=== PATIENT | male | born 1950 | race Caucasian/White ===

== ENCOUNTER 2020-09-19 11:43 | Day surgery (SDC) | payer MEDICARE ==
[~2020-09-19] VITALS: Ht 175.3 cm; Wt 85.5 kg
[~2020-09-19 11:43] MED LIST: ACYC400 PO; ASCO500 PO; CYAN100 PO; ERGO400 PO; FENASTERIDE; FISH1000 PO; HYDACE5 PO; HYDHCL10 PO; HYDPAM25 PO; L LYSINE; L-LYSINE1000 MG PO; LOSA25 PO; MONT10T PO; Norco 10-325 T1 EACH PO; OMEP20ER PO; OXYC5 PO; PROBIOTIC1 EAC1 PO; SIMV10 PO; TAMS.4ER PO
== END 2020-09-19 14:14 | disposition home or self-care (01) ==
LOC: ORSCSDS 11:43
PROVIDERS: Surgery
PROC: 0DBK8ZX Excision of Ascending Colon, Via Natural or Artificial Opening Endoscopic, Diagnostic (ICD-10-PCS; principal; 2020-09-19 13:00)
PROC: 0DJ08ZZ Inspection of Upper Intestinal Tract, Via Natural or Artificial Opening Endoscopic (ICD-10-PCS; principal; 2020-09-19 13:00)
DX: Z12.11 Encounter for screening for malignant neoplasm of colon (principal); Z86.010 Personal history of colon polyps; K21.9 Gastro-esophageal reflux disease without esophagitis; D12.4 Benign neoplasm of descending colon; I10 Essential (primary) hypertension; Z79.899 Other long term (current) drug therapy
CPT/HCPCS: 88305; J2704; J7120

== ENCOUNTER 2024-04-25 07:58 | Day surgery (SDC) | payer MEDICARE ==
[~2024-04-25] VITALS: Ht 170.2 cm; Wt 85.5 kg
[2024-04-25] VITALS (14 sets, daily range): BP systolic 105–146; BP diastolic 75–109
[~2024-04-25 07:58] MED LIST changes: +OMEGA XL PO; +VITAMIN D350 MC3 PO
[2024-04-25] MEDS ORDERED: Acetaminophen 500 MG Tab PO SCH ×2 (08:25→16:00)
[2024-04-25] MEDS ORDERED: Lactated Ringer's 1,000 ML IV SCH ×2 (08:25→10:45)
[2024-04-25] MEDS ORDERED: Ropivacaine 0.5% HCl/Pf 123.125 MG,EPINEPHrine HCL 0.25 MG,Ketorolac Tromethamine 15 MG... INFIL SCH (08:25)
[2024-04-25] MEDS ORDERED: Chlorhexidine Mouth Care 15 ML UDC MT SCH (08:25)
[2024-04-25] MEDS ORDERED: OxyCODONE HCL 10 MG TABCR PO SCH (08:25)
[2024-04-25] MEDS ORDERED: CeFAZolin Sodium 2,000 MG in NS 100 ML IV SCH ×2 (08:25→19:00)
[2024-04-25] MEDS ORDERED: Tranexamic Acid 100 ML IV SCH (08:31)
--- NOTE | 2024-04-25 09:36 | NUR ---
PATIENT ACCOMPANIED TO DAY SURGERY WITH "FRIEND", HOANG. PATIENT GAVE GLASSES TO HOANG FOR SAFE KEEPING.
[2024-04-25] MEDS ORDERED: propofoL 60 ML IV ONE (09:48)
[2024-04-25] MEDS ORDERED: FentaNYL Citrate 50 MCG/ML 2 ML Injection ONE (09:48)
[2024-04-25] MEDS ORDERED: Promethazine HCl 25 MG Tab PO PRN (10:40)
[2024-04-25] MEDS ORDERED: Acyclovir 400 MG Tab PO PRN (10:40)
[2024-04-25] MEDS ORDERED: Metoclopramide HCl 5MG / ML 2ML Vial IV PRN (10:45)
[2024-04-25] MEDS ORDERED: Magnesium Hydroxide Conc 10 ML UDC PO PRN (10:45)
[2024-04-25] MEDS ORDERED: OxyCODONE HCL 5 MG TAB PO PRN ×2 (10:45)
[2024-04-25] MEDS ORDERED: FLU VACC TS2024-25(6MOS UP)/PF 45 MCG/0.5 ML SYRINGE IM SCH (10:45)
[2024-04-25] MEDS ORDERED: Ondansetron HCl 2 MG / ML 2ML Vial IV PRN (10:45)
[2024-04-25] MEDS ORDERED: HYDROmorphone HCl/Pf 1MG SYR IV PRN (10:50)
[2024-04-25] MEDS ORDERED: DiphenhydrAMINE HCL 25 MG Cap PO PRN (10:50)
[2024-04-25] MEDS ORDERED: Bisacodyl 10 MG Supp PR PRN (10:50)
[2024-04-25] MEDS ORDERED: Phenylephrine HCl 100 MCG/ML-NS 10MLSYR (1MG/10ML) ONE (11:16)
[2024-04-25] MEDS ORDERED: ePHEDrine Sulfate 50 MG/ML 1ML Injection ONE (11:18)
[2024-04-25] MEDS ORDERED: Ketorolac Tromethamine 15mg Vial IV SCH (12:00)
[2024-04-25] MEDS ORDERED: Esmolol HCL 10 MG/ML 10ML VIAL ONE (12:44)
--- NOTE | 2024-04-25 14:46 | NUR ---
ARRIVAL TO UNIT PATIENT TRANSFERRED TO UNIT FROM PACU VIA BED AT APPROX 1350. PATIENT ALERT AND ORIENTED X4. S/P R TKA WITH SPINAL - UNABLE TO WIGGLE TOES BUT DOES REPORT SOME SENSATION, DESCRIBED "PRESSURE." REPORTING 2/10 PAIN - MEDICATED PER EMAR. VSS. ON ROOM AIR, SATs >90%. RR EVEN, UNLABORED. TOLERATING SOME PO INTAKE - LR INFUSING PER EMAR. KPAD IN PLACE. CALL LIGHT IN REACH. VISITOR AT BEDSIDE.
[2024-04-25] MEDS ORDERED: Montelukast Sodium 10 MG Tab PO SCH (18:00)
[2024-04-25] MEDS ORDERED: Losartan Potassium 25 MG Tab PO SCH (18:00)
--- NOTE | 2024-04-25 18:12 | NUR ---
SHIFT SUMMARY NO ACUTE CHANGES SINCE ARRIVAL TO UNIT. VSS. S/P R TKA - REPORTING INCREASED SENSATION TO BLE FROM SPINAL. IS ABLE TO WIGGLE TOES BUT DOES REPORT NUMBNESS, TINGLING. ABLE TO STAND AND PIVOT TO RECLINER CHAIR WITH PHYSICAL THERAPY. DRESSING TO R KNEE REMAINS C/D/I, NO SHADOWING NOTED TO KRISTI WRAP. COOLING DEVICE IN PLACE. TOLERATING PO INTAKE. LR INFUSING PER EMAR. MANAGING PAIN PER EMAR. BLADDER SCAN PERFORMED SHOWING 460ML - PATIENT UNABLE TO VOID. X1 STRAIGHT CATH PERFORMED - 700ML OUT. CALL LIGHT IN REACH. WILL CONTINUE TO MONITOR AND REPORT TO ONCOMING RN.
[2024-04-25] MEDS ORDERED: Docusate Sodium 100 MG Cap PO SCH (21:00)
[2024-04-26 04:15] VITALS: BP 136/88
[2024-04-26 05:15] LABS: BASOPHILS ABSOLUTE AUTO 0.03 K/mm3 (0.00-0.23); BASOPHILS PERCENT AUTO 0 % (0-2); EOSINOPHILS ABSOLUTE AUTO 0.12 K/mm3 (0.00-0.68); EOSINOPHILS PERCENT AUTO 1 % (0-6); Hemoglobin 14.2 g/dL (13.5-17.5); IMMATURE GRAN ABSOLUTE AUTO 0.02 K/mm3 (0.00-0.10); IMMATURE GRAN PERCENT AUTO 0 % (0-1); LYMPHOCYTES ABSOLUTE AUTO 1.61 K/mm3 (0.84-5.20); LYMPHOCYTES PERCENT AUTO 19 % (21-46); MONOCYTES ABSOLUTE AUTO 0.64 K/mm3 (0.16-1.47); MONOCYTES PERCENT AUTO 8 % (4-13); Mean Corpuscular HGB 30.9 pg (26.0-34.0); Mean Corpuscular HGB Conc 33.8 g/dL (31.5-36.5); Mean Corpuscular Volume 92 fL (80-100); Mean Platelet Volume 8.7 fL (9.1-12.4); NEUTROPHILS ABSOLUTE AUTO 5.97 K/mm3 (1.96-9.15); NEUTROPHILS PERCENT AUTO 71 % (41-73); Platelet Count 169 K/mm3 (150-400); RDW Coefficient Variation 12.9 % (11.7-14.2); RDW Standard Deviation 42.7 fL (35.1-46.3); Red Blood Cell Count 4.59 M/mm3 (4.30-5.90); White Blood Cell Count 8.39 K/mm3 (4.00-11.30)
[2024-04-26 05:41] LABS: Bun/Creatinine Ratio 23.2 (12.0-20.0); Calcium, Blood 8.9 mg/dL (8.5-10.1); Creatinine, Blood 0.99 mg/dL (0.60-1.20); Potassium, Blood 3.9 mmol/L (3.5-5.5)
[2024-04-26 07:24] VITALS: BP 143/88
--- NOTE | 2024-04-26 07:39 | NUR ---
SHIFT SUMMARY NOC. PT POD 1 FOR RIGHT TOTAL KNEE. PT'S AQUACEL WITH KRISTI IS C/D/I WITH POLAR PACK IN PLACE. PT TOLERATING PO INTAKE, AND PAIN MANAGED WITH SCHEDULED MEDS AND OXYCODONE. PT DENIED URGE TO VOID UNTIL THIS AM. PT BLADDER SCANNED AND FOUND TO BE OVER 400ML. ATTEMPTED STRAIGHT CATH X2 WITH DE ALCHOLIZER AT 0600. SCANT PINK BLOOD PRESENT UPON REMOVAL OF CATHETER. EDUCATED PT ON PLAN TO MOBILIZE AND CONSULT PROVIDER FOR ORDERS OF FLOMAX. DISCUSSED WITH ONCOMING PENELOPE QUIROS. PT MAKES NEEDS KNOWN, CALL LIGHT IN REACH.
[2024-04-26] MEDS ORDERED: Tamsulosin HCl 0.4 MG Cap PO ONE (07:50)
[2024-04-26] MEDS ORDERED: ASPI81CH PO (08:35)
[2024-04-26] MEDS ORDERED: Aspirin 81 MG Chew PO SCH (09:00)
[2024-04-26] MEDS ORDERED: Omeprazole 20 MG CapCR PO SCH (09:00)
[2024-04-26] MEDS ORDERED: Atorvastatin 10 MG Tab PO SCH (09:00)
[2024-04-26] MEDS ORDERED: Lidocaine 2% Jelly Uro-Jet TOP ONE (09:15)
[2024-04-26] MEDS ORDERED: Flomax0.4 MG PO (11:55)
--- NOTE | 2024-04-26 12:32 | NUR ---
PT BLADDER SCANNED AT 1030, POST VOID RESIDUAL SHOWED 380ML. ATTEMPTED TO STRAIGHT CATH PT WITH 14 FR, COUDE TIP CATHETER WITH URO-JET. STERILE TECHNIQUE MAINTAINED, AND CATHETER ADVANCED-NO FLOW OF URINE NOTED, EVEN WITH FURTHER ADVANCEMENT OF CATHETER. CATHETER THEN REMOVED AND DR. GARZA NOTIFIED. PLAN IS FOR PT TO GO HOME AND TO FOLLOW UP WITH UROLOGY.
--- NOTE | 2024-04-26 12:38 | NUR ---
DISCHARGE: PACKET PRINTED AND PT EDUCATED. IV DC'D WNL, TIP INTACT. FLOMAX SCRIPT CALLED INTO [facility] BY [employer]. PT LEFT UNIT VIA WHEELCHAIR WITH KENJI TRUONG AT ABOUT 1230.
== END 2024-04-26 12:30 | disposition home or self-care (01) ==
LOC: ORSCMMR 07:58 → ORD 10:00 → ORSCMMR 14:09 → SURS 14:09 → ORSCMMR 04-26 12:30
PROVIDERS: Orthopaedic Surgery
PROC: 0SRC0JZ Replacement of Right Knee Joint with Synthetic Substitute, Open Approach (ICD-10-PCS; principal; 2024-04-25 10:00)
DX: M17.11 Unilateral primary osteoarthritis, right knee (principal); I10 Essential (primary) hypertension; J44.89 Other specified chronic obstructive pulmonary disease; E78.5 Hyperlipidemia, unspecified; K21.9 Gastro-esophageal reflux disease without esophagitis; Z79.899 Other long term (current) drug therapy
CPT/HCPCS: 36415; 51701; 73560-RT; 80048; 85025; 97110; 97116; 97161; 97530; A9270; C1713; C1776; J0171; J0690; J0735; J1885; J2371; J2704; J2795; J3010; J7120

== ENCOUNTER 2024-05-20 14:17 | Emergency (ER) | payer MEDICARE ==
[~2024-05-20] VITALS: Ht 172.7 cm; Wt 83.9 kg
[~2024-05-20 14:17] MED LIST changes: +ASPI81CH PO; +Flomax0.4 MG PO
[2024-05-20 14:34] VITALS: BP 168/99
[2024-05-20] MEDS ORDERED: Glycerin Adult Supp 1 EA PR ONE (16:20)
== END 2024-05-20 17:01 | disposition home or self-care (01) ==
LOC: ER 14:17
DX: K59.00 Constipation, unspecified (principal); Z87.891 Personal history of nicotine dependence; Z79.2 Long term (current) use of antibiotics; Z79.02 Long term (current) use of antithrombotics/antiplatelets; Z79.51 Long term (current) use of inhaled steroids; Z79.899 Other long term (current) drug therapy; Z79.82 Long term (current) use of aspirin; Z79.83 Long term (current) use of bisphosphonates
CPT/HCPCS: 74018; 99283-25; A9270